=== PATIENT | male | born 1960 | race Caucasian/White ===

== ENCOUNTER → 2019-01-04 10:57 | Outpatient (CLI) | payer OTHER, SELFPAY ==
--- NOTE | 2019-01-04 11:13 | EKG12_ITS ---
Test Reason : PRE-OP Blood Pressure : / mmHG Vent. Rate : 063 BPM Atrial Rate : 063 BPM P-R Int : 168 ms QRS Dur : 088 ms QT Int : 418 ms P-R-T Axes : 055 000 -07 degrees QTc Int : 427 ms Normal sinus rhythm Septal infarct , age undetermined , cannot be excluded Nonspecific T wave abnormality Abnormal ECG Confirmed by NATALI GRANADOS, KLAUS ([id number]), news videotape editor FAWAD PARHAM ([id number]) on 01/07/2019 6:21:31 AM Referred By: Connor Saenz Confirmed By:KLAUS HURST MD
[2019-01-04 11:39] LABS: Hemoglobin 16.6 g/dl (13.0-16.5); Mean Corp Hgb Conc 36.1 g/gl (32-36); Mean Corpuscular Hgb 29.3 pg (27.0-32.0); Mean Corpuscular Volume 81.1 fL (80-94); Mean Platelet Vol. 10.1 fl (6.2-12.0); Platelet Count 248 K/mm3 (150-450); RBC Distribution Width SD 38.3 fl (35.1-43.9); Red Blood Count 5.67 M/mm3 (4.6-6.2); White Blood Count 6.2 K/mm3 (4.4-11.0)
[2019-01-04 11:40] LABS: Scan Indicated on CBC? Y/N NO
[2019-01-04 12:01] LABS: Anion Gap 7 (5-15); BUN 23 mg/dL (7-18); BUN/Creat Ratio 22.8 RATIO (10-20); Calcium,Total 8.8 mg/dL (8.5-10.1); Chloride 104 mmol/L (98-107); Creatinine, Serum 1.01 mg/dL (0.70-1.30); EST Glomerular Filtration Rate 81 mL/min (>60); Est Glom Filt Rate - Afr Amer 98 mL/min (>60); Glucose 245 mg/dL (74-106); Potassium 4.2 mmol/L (3.5-5.1); Sodium Level 138 mmol/L (136-145)
== END ==
PROVIDERS: Family Provider Family Medicine; PCP Family Medicine; Referring Provider Otolaryngology; Visit Provider Otolaryngology
DX: Z01.818 Encounter for other preprocedural examination (principal)
CPT/HCPCS: 36415; 80048; 85027; 93005

== ENCOUNTER → 2019-01-10 13:59 | Outpatient (CLI) | payer OTHER, SELFPAY ==
--- NOTE | 2019-01-10 13:59 | TUR_PTH ---
PATIENT: [facility]ANDEN HOPPER [facility] U[facility][id number] AGE/SX: 64/M ROOM: RE01/10/[address]: Dr. Connor Saenz MD : 1960 BED: DIS: SPEC #: [id number] RECD: 01/11/19 15:13 STATUS: KANNAN JACLYN #: [id number] DWAYNE: 01/10/19 13:[address]: Connor Saenz DEPT: SURGICAL PATHOLOGY RECD BY: Matt Rivero ENTERED: 01/12/19 11:27 SP TYPE: TURBINATES OTHR DR: Dr. Gustavo Funez III, MD [facility] Tissues: Nasal turbinate, NOS Procedures: Decalcification bone/plaque Surgery Specimen Level III HEADER OPERATION: Septoplasty, resection inferior turbinates PRE-OP DIAGNOSIS: Nasal congestion, hypertrophy of nasal turbinates, deviated nasal septum TISSUE SUBMITTED: Septum, inferior turbinates MICROSCOPIC DIAGNOSIS Septum and inferior turbinates: Fragments of bone and cartilage, clinically deviated nasal septum. SJ:maday 01/17/19 MICROSCOPIC DESCRIPTION Slides are reviewed. GROSS DESCRIPTION Received is one container labeled with the patient's name and not further designated. The specimen consists of multiple irregular fragments of light to dark rodriguez bone and cartilage that in aggregate measure 2 x 1 x 0.2 cm. Warehouse Director portions are submitted in one cassette after decalcification. / AM:maday 01/12/19 TC:5 CPT: 40125, 30178
== END ==
PROVIDERS: Family Provider Family Medicine; PCP Family Medicine; Referring Provider Otolaryngology; Visit Provider Otolaryngology
DX: J34.2 Deviated nasal septum (principal); J34.3 Hypertrophy of nasal turbinates; R09.81 Nasal congestion
CPT/HCPCS: 88304; 88311